=== PATIENT | female | born 1960 ===

== ENCOUNTER 2017-02-08 22:54 | Emergency (ER) | payer BC, OTHER ==
[2017-02-08 23:03] VITALS: BP 147/92; PULSE 82; RESP 20; TEMP 98.6; O2SAT 98
[2017-02-08 23:37] LABS: RBC URINE 9 /hpf (0-3); URINE BACTERIA RARE (<OCC); URINE BILIRUBIN NEGATIVE (NEGATIVE); URINE BLOOD 1+ (NEGATIVE); URINE COLOR Yellow (YELLOW); URINE GLUCOSE (UA) NORMAL (Normal); URINE KETONE NEGATIVE (NEGATIVE); URINE PROTEIN NEGATIVE (NEGATIVE); URINE UROBILINOGEN NORMAL mg/dL (0.2-1.0); WBC URINE 3 /hpf (0-5)
[2017-02-08 23:38] LABS: URINE LEUKOCYTE ESTERASE NEGATIVE Leu/uL (Negative)
--- NOTE | 2017-02-09 00:01 | C.PDOC ---
History Of Present Illness 56 yo female c/o severe itching and dysuria for 3 days. Pt believes its an "allergy". Denies discharge. No fever. Pt is not sexually active and not concerned about STDs. No recent abx use. Tried OTC anti-itch wipes and cream without relief. H/o similar episode a few years ago. No urinary frequency. No abdominal or back pain. No fever. 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: language barrier Onset/Duration Of Symptoms: Days Current Symptoms Are (Timing): Still Present Associated Symptoms: denies: Fever, Nausea, Vomiting, Diarrhea, Back Pain, Chest Pain, Constipation Past Medical History Vital Signs: Last Vital Signs Temp 98.6 F 02/08/17 23:00 Pulse 82 02/08/17 23:00 Resp 20 02/08/17 23:00 BP 147/92 H 02/08/17 23:00 Pulse Ox 98 02/09/17 00:20 Family History: States: No Known Family Hx - Social History Hx Alcohol Use: Yes Hx Substance Use: No - Immunization History Hx Tetanus Toxoid Vaccination: No Hx Influenza Vaccination: No Hx Pneumococcal Vaccination: No Review Of Systems Except As Marked, All Systems Reviewed And Found Negative. Genitourinary: Positive for: Dysuria Physical Exam - Physical Exam Appears: Well, Non-toxic, Other (pt actively itching ; appears uncomfortable) Skin: Normal Color, Warm, Dry Head: Atraumatic, Normacephalic Eye(s): bilateral: Normal Inspection, EOMI Nose: Normal Oral Mucosa: Moist Neck: Normal, Normal ROM, Supple Lymphatic: Normal Exam, No Inguinal Node Tenderness Chest: Symmetrical Respiratory: No Accessory Muscle Use Gastrointestinal/Abdominal: Normal Exam, Soft, No Tenderness Back: Normal Inspection Pelvic: No Normal External Exam ((+) muliple superficial abrasion- pt notes from scratching . No on erythematous base. No discharge. ), Vaginal Discharge ( mild white discharge notes), No Cervical Motion Tenderness, No Adnexal Tenderness Extremity: Normal ROM Neurological/Psych: Oriented x3, Normal Speech, Normal Cognition ED Course And Treatment O2 Sat by Pulse Oximetry: 98 Progress Note: Case discussed with bryan Ye plan and treatment. 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 Disposition - Disposition Disposition: HOME/ ROUTINE Disposition Time: 00:17 Condition: STABLE Additional Instructions: Vaya a perez mdico o la clnica en 2-5 bethea sin falta, para mas evaluacin. [place] los medicamentos zehra indicado. Volver a la denny de emergencia en cualquier momento si los sntomas persisten o empeoran. Prescriptions: Fluconazole [Diflucan] 150 mg PO ONCE #1 tab Miconazole [Miconazole 7] 100 mg VG QPM #7 sup Instructions: Vulvovaginal Candidiasis (ED) Print Language: PANAMANIAN - Clinical Impression Clinical Impression: Vulvovaginal candidiasis
== END 2017-02-09 00:28 | disposition home or self-care (01) ==
LOC: C.ER 22:54
DX: B37.3 Candidiasis of vulva and vagina (principal)

== ENCOUNTER 2017-02-13 10:43 | Emergency (ER) | payer MEDICAID, OTHER ==
[2017-02-13 10:57] VITALS: BMI 29.8
[2017-02-13 10:59] VITALS: BP 150/94; PULSE 76; RESP 18; TEMP 98.1; O2SAT 100
--- NOTE | 2017-02-13 11:18 | C.PDOC ---
History Of Present Illness VIA TRANS PERSIST VAGINAL RASH X 1 WEEK. SEEN 02/09 NO IMPROVE W RX. RASH GENITAL, +BURNING AND ITCH. NO VAG DC. NO UTI SX. DENIES SEXUAL ACITVITY IN 13 YRS. SIM RASH 5 YRS AGO BUT CURRENT SX MORE INTENSE. PS PREV TOLD "MAY HAVE A VENEREAL DISEASE" , RECEIVED AN UNK SHOT. 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 +GEN HERPES RASH W EXCORIATION FROM INNER LABIAL FOLDS TO GROIN. NO DC. MDM PT ADVISED LIMITED IMPROVE W ANTIVIRAL DUE TO PROLONGED DURATION OF SX. TOPICAL PAIN MED, PO PAIN MEDS, FU CLINIC Time Seen by Provider: 02/13/17 11:14 Chief Complaint (Nursing): Female Genitourinary History Per: Patient History/Exam Limitations: no limitations Onset/Duration Of Symptoms: Days Current Symptoms Are (Timing): Still Present Associated Symptoms: denies: Fever, Chills, Nausea, Vomiting, Urinary Symptoms Abnormal Vaginal Bleeding: No Past Medical History Reviewed: Historical Data, Nursing Documentation, Vital Signs Vital Signs: Last Vital Signs Temp 98.1 F 02/13/17 10:58 Pulse 76 02/13/17 10:58 Resp 18 02/13/17 10:58 BP 150/94 H 02/13/17 10:58 Pulse Ox 100 02/13/17 12:03 - Medical History PMH: Asthma Surgical History: Cholecystectomy Family History: States: Unknown Family Hx - Social History Hx Alcohol Use: Yes Hx Substance Use: No - Immunization History Hx Tetanus Toxoid Vaccination: No Hx Influenza Vaccination: No Hx Pneumococcal Vaccination: No Review Of Systems Except As Marked, All Systems Reviewed And Found Negative. Constitutional: Negative for: Fever, Chills Respiratory: Negative for: Cough Gastrointestinal: Negative for: Nausea, Vomiting, Abdominal Pain Genitourinary: Positive for: Rash. 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 +GEN HERPES RASH W EXCORIATION FROM INNER LABIAL FOLDS TO GROIN. NO DC.) Extremity: Normal ROM, Capillary Refill (< 2 SEC .) Neurological/Psych: Oriented x3, Normal Speech, Normal Cognition ED Course And Treatment O2 Sat by Pulse Oximetry: 100 (RA) Pulse Ox Interpretation: Normal Progress - Data Reviewed Data Reviewed: Old records Medical Decision Making Medical Decision Making: PT ADVISED LIMITED IMPROVE W ANTIVIRAL DUE TO PROLONGED DURATION OF SX. TOPICAL PAIN MED, PO PAIN MEDS, FU CLINIC Disposition Counseled Patient/Family Regarding: Diagnosis, Need For Followup, Rx Given - Disposition Referrals: [facility] [Outside] [facility] [Outside] Disposition: HOME/ ROUTINE Disposition Time: 11:51 Condition: IMPROVED Additional Instructions: [facility]STA DE S[place]A [place]. Prescriptions: Acetaminophen [Tylenol 325mg tab] 650 mg PO Q6 #30 tab Ibuprofen [Motrin] 600 mg PO Q6 #30 tab Lidocaine 5% 1 appl TP TID #1 tube Instructions: Genital Herpes Simplex (ED) Print Language: BENINESE - Clinical Impression Clinical Impression: Genital herpes - Scribe Statement The provider has reviewed the documentation as recorded by the Ike WONG Provider Attestation: All medical record entries made by the Ike were at my direction and personally dictated by me. I have reviewed the chart and agree that the record accurately reflects my personal performance of the history, physical exam, medical decision making, and the department course for this patient. I have also personally directed, reviewed, and agree with the discharge instructions and disposition.
[2017-02-13] MEDS ORDERED: Lidocaine 4% (Laryng-O-Jet) Kit MM ONE (11:40)
[2017-02-13] MEDS ORDERED: Lidocaine 2% Jelly (Uro-Jet) TOP ONE ×2 (11:50→12:30)
[2017-02-13] MEDS ORDERED: Bacitracin 500 Units/gm Oint Foilpak UD ONE (12:03)
== END 2017-02-13 12:32 | disposition home or self-care (01) ==
LOC: C.ER 10:43
DX: A60.00 Herpesviral infection of urogenital system, unspecified (principal)